=== PATIENT | male | born 1985 | race Caucasian/White ===

== ENCOUNTER 2018-07-23 21:52 | Emergency (ER) | payer OTHER ==
[~2018-07-23] VITALS: Ht 188 cm; Wt 72.6 kg
[2018-07-23] MEDS ORDERED: NKM (22:06)
[2018-07-23] MEDS ORDERED: IBUPROFEN600 MG ORAL (22:08)
--- NOTE | 2018-07-23 22:09 | Emergency Room Report ---
History of Present Illness General Chief Complaint: Headache Source: Patient Present Illness HPI This is a 33-year-old male with no cerumen past medical history. He present with chief complaint of headache. He had some blurry vision yesterday. At work , there were using a propane portal heater. He thought this may be from that. He denies any other symptom. No focal deficit. No meningeal get headache. Denies any nausea vomiting. Denies any trauma. Denies any focal deficit. Allergies: Coded Allergies: No Known Allergies (Unverified , 07/23/18) Nursing Documentation-[facility] Past Medical History: No Stated History Review of Systems Eye: Denies: eye pain, blurred vision ENT: Denies: ear pain, nose congestion, throat swelling Respiratory: Denies: cough, shortness of breath Cardiovascular: Denies: chest pain, palpitations Gastrointestinal: Denies: abdominal pain, diarrhea, nausea, vomiting Musculoskeletal: Denies: back pain, joint pain Skin: Denies: rash Neurological: Reports: headache; Denies: numbness Endocrine: Denies: increased thirst, increased urine Hematologic/Lymphatic: Denies: easy bruising All Other Systems: negative except mentioned in HPI Physical Exam Vital Signs Date Time Temp Pulse Resp B/P (MAP) Pulse Ox O2 Delivery O2 Flow Rate FiO2 07/23/18 22:02 98.1 75 16 127/86 96 Room Air vitals normal Sp02 EP Interpretation: reviewed, normal General Appearance: well appearing, no apparent distress, alert Head: normocephalic, atraumatic Eyes: bilateral eye PERRL, bilateral eye EOMI ENT: hearing grossly normal, normal pharynx Neck: full range of motion, supple, no meningismus Respiratory: chest non-tender, lungs clear, normal breath sounds Cardiovascular #1: regular rate, rhythm, no murmur Gastrointestinal: normal bowel sounds, non tender, no mass, no organomegaly, no bruit, non-distended Musculoskeletal: back normal, gait/station normal, normal range of motion Psychiatric: mood/affect normal Skin: warm/dry Medical Decision Making Diagnostic Impression: Primary Impression: Headache Qualified Codes: G44.209 - Tension-type headache, unspecified, not intractable Additional Impression: Inhalation of gaseous substance Qualified Codes: T59.91XA - Toxic effect of unspecified gases, fumes and vapors, accidental (unintentional), initial encounter ER Course Patient with headache. This could be tension headache, migraine headache. Could be secondary to inhalation of gas or substance. No focal deficit. Notice of TIA or CVA. No bleed. We'll discharge home. Last Vital Signs Date Time Temp Pulse Resp B/P (MAP) Pulse Ox O2 Delivery O2 Flow Rate FiO2 07/23/18 22:02 98.1 75 16 127/86 96 Room Air Status: improved Disposition: HOME, SELF-CARE Condition: Stable Scripts Ibuprofen* (MOTRIN*) 600 Mg Tablet 600 MG ORAL THREE TIMES A DAY, #30 TAB 0 Refills Prov: Roderick Bowden MD 07/23/18 Patient Instructions: Tension Headache Additional Instructions: Follow-up with your doctor in 7 days. Return if worse. Roderick Bowden MD Jul 23, 2018 22:09
--- NOTE | 2018-07-23 22:11 | NUR ---
ED Nurse Note: pt walked in due to headache seeing floaters @ 1900 while at work. stated posible inhalation of profane. Pt is AO x 4times, VSS, on room air no distress. ERMD seen Pt at bedside.
[2018-07-23 22:15] VITALS: BP 132/86
[2018-07-23 22:25] VITALS: BP 132/86
--- NOTE | 2018-07-23 22:25 | NUR ---
ER DISCHARGE NOTE: Patient is cleared to be discharged per ERMD, pt is aox4, on room air, with stable vital signs. pt was given dc and prescription instructions, pt was able to verbalize understanding, pt id band and removed without complications. pt is able to ambulate with steady gait. pt took all belongings.
== END 2018-07-23 22:25 | disposition home or self-care (01) ==
LOC: EMR 22:17
DX: G44.209 Tension-type headache, unspecified, not intractable (principal); T59.891A Toxic effect of other specified gases, fumes and vapors, accidental (unintentional), initial encounter; Y92.9 Unspecified place or not applicable; Y99.0 Civilian activity done for income or pay
CPT/HCPCS: 99282